=== PATIENT | male | born 1980 | race Two or more races ===

== ENCOUNTER → 2020-02-21 | Emergency (ER) | payer SELFPAY ==
[~2020-02-21] VITALS: Ht 160 cm; Wt 95.3 kg
[~2020-02-21] MED LIST: LIBRIUM25 MG ORAL; chlordiazePOXIDE 25mg Cap ORAL ONE
--- NOTE | 2020-02-21 19:45 | NUR ---
ED Nurse Note: Patient walked into the ED with c/o anxiety after alcohol consumption today. Patient denies SI/HI, AH/VH. Denies CP/SOB/, N/V/D/. Patient is AAOx4 and ambulatory.
--- NOTE | 2020-02-21 19:46 | NUR ---
ED Nurse Note: ERMD at bedside
[2020-02-21 20:01] VITALS: BP 138/84
--- NOTE | 2020-02-21 20:01 | NUR ---
ER DISCHARGE NOTE: Patient is cleared to be discharged per ERMD, pt is aox4, on room air, with stable vital signs. pt was given dc and prescription instructions, pt was able to verbalize understanding, pt id band removed. pt is able to ambulate with steady gait. pt took all belongings.
--- NOTE | 2020-02-22 17:10 | Emergency Room Report ---
History of Present Illness General Chief Complaint: Alcohol Intoxication Source: Patient Present Illness HPI 39-year-old male presents to ED. States has been drinking alcohol today. Feels a little anxious and shaky. Denies nausea or vomiting. Denies SI or HI. Denies hearing voices. Denies drug use. No other aggravating relieving factors. Denies any other associated symptoms Allergies: Coded Allergies: No Known Allergies (Unverified , 02/21/20) COVID-19 Screening Contact w/high risk pt: No Experienced COVID-19 symptoms?: No COVID-19 Testing performed PER DIEM: No Patient History Past Medical History: none Past Surgical History: none Pertinent Family History: none Social History: Denies: smoking, alcohol use, drug use Immunizations: UTD Reviewed Nursing Documentation: PMH: Agreed; PSxH: Agreed Nursing Documentation-PMH Past Medical History: No Stated History Review of Systems All Other Systems: negative except mentioned in HPI Physical Exam Vital Signs Date Time Temp Pulse Resp B/P (MAP) Pulse Ox O2 Delivery O2 Flow Rate FiO2 02/21/20 19:42 98.8 99 18 135/79 (97) 99 Room Air Sp02 EP Interpretation: reviewed, normal General Appearance: no apparent distress, alert, GCS 15, non-toxic Head: normocephalic, atraumatic Eyes: bilateral eye normal inspection, bilateral eye PERRL ENT: hearing grossly normal, normal pharynx, no angioedema, normal voice Neck: full range of motion, supple/symm/no masses Respiratory: chest non-tender, lungs clear, normal breath sounds, speaking full sentences Cardiovascular #1: regular rate, rhythm, no edema Cardiovascular #2: 2+ carotid (R), 2+ carotid (L), 2+ radial (R), 2+ radial (L), 2+ dorsalis pedis (R), 2+ dorsalis pedis (L) Gastrointestinal: normal bowel sounds, non tender, soft, non-distended, no gu arding, no rebound Rectal: deferred Genitourinary: normal inspection, no CVA tenderness Musculoskeletal: back normal, normal range of motion, gait/station normal, non- tender Neurologic: alert, motor strength/tone normal, oriented x3, sensory intact, responsive, speech normal Psychiatric: judgement/insight normal, memory normal, no suicidal/homicidal ideation, no delusions, anxious Reflexes: 3+ bicep (R), 3+ bicep (L), 3+ tricep (R), 3+ tricep (L), 3+ knee (R), 3+ knee (L) Skin: no rash Lymphatic: no adenopathy Medical Decision Making Diagnostic Impression: Primary Impression: Acute alcoholic intoxication Qualified Codes: F10.929 - Alcohol use, unspecified with intoxication, unspecified ER Course Hospital Course 39-year-old male presents to ED status post EtOH intoxication. feels anxious Clinical course Patient placed in chair. After initial history physical exam reveals male in no acute distress. Appears somewhat anxious. Admits to alcohol use. Maintaining good eye contact. Answering questions appropriately. Vital stable. No signs of confusion. No active withdrawal symptoms. Given Librium in ED. Will discharge home. I will provide referrals. Safe for discharge with close outpatient follow-up Diagnosis - ETOH intoxication stable and discharged to home with Rx Librium. Followup with PMD. Return to ED if symptoms recur or worsen Last Vital Signs Date Time Temp Pulse Resp B/P (MAP) Pulse Ox O2 Delivery O2 Flow Rate FiO2 02/21/20 20:01 98.0 86 20 138/84 99 Room Air Status: improved Disposition: HOME, SELF-CARE Condition: Stable Scripts Chlordiazepoxide (Chlordiazepoxide HCl) 25 Mg Capsule 25 MG ORAL THREE TIMES A DAY, #15 CAP 0 Refills Prov: Grover Hyman MD 02/21/20 Referrals: Leah Trujillo [facility] Patient Instructions: Alcohol Intoxication Grover Hyman MD Feb 22, 2020 17:10
== END | disposition home or self-care (01) ==
LOC: EMR 20:05
DX: F10.929 Alcohol use, unspecified with intoxication, unspecified (principal)
CPT/HCPCS: 99282